=== PATIENT | female | born 1995 | race Asian ===

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

== ENCOUNTER 2018-07-21 09:55 | Emergency (ER) | payer OTHER ==
--- NOTE | 2018-07-21 10:59 | EDPHY ---
H & P Time Seen by Provider: 07/21/18 10:34 HPI/ROS: CLINICAL IMPRESSION: Normal exam ASSESSMENT/PLAN: 23-year-old female presents to the emergency department with chief complaint of "I might be ". Patient reports taking a negative test yesterday but wanted to be sure before she got on a plane. Urine negative. No complaints of dysuria or flank pain. Patient advised to follow up with primary care and start control if she is not interested in becoming . DIFFERENTIAL DX: , UTI ED PROCEDURES: See lab and/or imaging results below No other procedures performed ED COURSE: Negative test relayed to the patient CHIEF COMPLAINT: Possibly HPI: 23-year-old student presents to the emergency department concerned that she may be . Two months ago she took Plan B and states that she does not think she has had a menstrual cycle since since that time. She took a negative test earlier this week. PAST MEDICAL HISTORY: See triage summary and nurse notes for addition applicable history Pertinent Past Surgical History: Previous pilonidal cyst I and D,"vaginal" I and D Family History: None reported Social History: Student REVIEW OF SYSTEMS: A full 10 point review of systems was negative except for those mentioned in HPI. PHYSICAL EXAM: General Appearance: Alert, oriented, appropriate, cooperative, NAD, well hydrated, non-toxic appearing, VSS, no hypoxia. Gastrointestinal: Abdomen is soft, nontender, bowel sounds normal, no masses/ hernia, no rigidity, guarding or focal peritoneal findings. Skin: Warm, dry, no rashes, no nodules on palpation. MEDICAL DECISION MAKING: Patient was seen independently. Secondary supervising physician at time of evaluation was: Dr. Simmons. Diagnosis: Normal exam . New, requires workup Summary: See Assessment and Plan for summary of ED visit Clinical lab tests: ordered / reviewed. Patient Progress: Improved. Smoking Status: Never smoked Constitutional: Initial Vital Signs Temperature (C) 37.2 C 07/21/18 10:03 Heart Rate 66 07/21/18 10:03 Respiratory Rate 16 07/21/18 10:03 Blood Pressure 124/68 H 07/21/18 10:03 O2 Sat (%) 99 07/21/18 10:03 O2 Delivery Mode Room Air Allergies/Adverse Reactions: No Known Allergies Allergy (Unverified 07/21/18 10:03) Home Medications: Medication Instructions Recorded NK [No Known Home Meds] 10/24/16 MDM/Departure - Depart Disposition: Home, Routine, Self-Care Clinical Impression: Normal physical exam Condition: Good Instructions: Normal Exam (ED) Additional Instructions: Your urine test in the emergency department was negative. No signs of urinary tract infection. We strongly recommend considering control if you plan to be sexually active and are not planning on . Please follow up with a primary care provider or [facility] to help discuss options for control. Referrals: NONE *PRIMARY CARE P,. [Primary Care Provider] - As per Instructions [facility] [Clinic] - As per Instructions
[2018-07-21 11:24] VITALS: BP 120/74
== END 2018-07-21 11:20 | disposition home or self-care (01) ==
DX: Z32.02 Encounter for pregnancy test, result negative (principal)

== ENCOUNTER 2018-08-30 14:23 | Emergency (ER) | payer OTHER ==
--- NOTE | 2018-08-30 15:16 | EDPHY ---
H & P Stated Complaint: dysuria and frequency x 3-4 days Time Seen by Provider: 08/30/18 14:55 HPI/ROS: Chief Complaint: Dysuria HPI: The patient presents the ED with a 3 day history of dysuria. She denies any fever, flank pain or vomiting. She denies prior history of UTI. She denies any cough or respiratory symptoms. She reports mild suprapubic discomfort otherwise is asymptomatic. REVIEW OF SYSTEMS: 10 point review of systems otherwise negative aside from elements mentioned in the HPI Source: Patient Exam Limitations: No limitations - Personal History LMP (Females 10-55): 8-14 Days Ago Tetanus Vaccine Date: 2014 - Medical/Surgical History Hx Asthma: No Hx Chronic Respiratory Disease: No Hx Diabetes: No Hx Cardiac Disease: No Hx Renal Disease: No Hx Cirrhosis: No Hx Alcoholism: No Hx HIV/AIDS: No Hx Splenectomy or Spleen Trauma: No Other PMH: abcess I and D pilonidial, vaginal I and D - Social History Smoking Status: Never smoked - Physical Exam Exam: General Appearance: Alert, no distress Respiratory: There are no retractions, lungs are clear to auscultation Cardiovascular: Regular rate and rhythm Gastrointestinal: Abdomen is soft and nontender, no masses, bowel sounds normal Back: No CVA tenderness Allergies/Adverse Reactions: No Known Allergies Allergy (Unverified 07/21/18 10:03) Home Medications: Medication Instructions Recorded Cephalexin [Keflex] 500 mg PO QID #28 cap 08/30/18 Medical Decision Making - Data Points Point of Care Test Results: Urine Collection Date 08/30/18 Collection Time 15:11 HCG Results Negative Urine Dip Collection Date 08/30/18 Collection Time 15:09 Specific [place] (1.002-1.030) 1.020 PH (5.0-7.5) 5.5 Leukocytes (Negative) Trace Nitrites (Negative) Negative Protein (Negative) 1+ Glucose (Negative) Negative Ketones (Negative) Negative Bilirubin (Negative) Negative Blood (Negative) 3+ Departure - Departure Disposition: Home, Routine, Self-Care Clinical Impression: Urinary tract infection Qualifiers: Urinary tract infection type: acute cystitis Hematuria presence: with hematuria Qualified Code(s): N30.01 - Acute cystitis with hematuria Condition: Good Instructions: Urinary Tract Infection in Women (ED) Additional Instructions: 1. Take antibiotics as directed. 2. Return to ED for any concerns, fever, vomiting or other concerns.
[2018-08-30 15:29] VITALS: BP 128/78
== END 2018-08-30 15:29 | disposition home or self-care (01) ==
DX: N30.01 Acute cystitis with hematuria (principal)